=== PATIENT | female | born 1990 | race Caucasian/White ===

== ENCOUNTER 2017-06-01 22:12 | Inpatient (IN) | payer BC, OTHER ==
[~2017-06-01] VITALS: Ht 167.6 cm; Wt 50.9 kg
[2017-06-01 22:46] LABS: Basophils # (auto) 0.1 uL; Basophils % (auto) 0.6 % (0.0-2.0); Eosinophils # (auto) 0 uL; Eosinophils % (auto) 0.3 % (0.0-7.0); Hematocrit 42.9 % (36.0-46.0); Hemoglobin 14.6 g/dL (12.2-16.2); Lymphocytes % (auto) 15.5 % (10.0-50.0); Mean Platelet Volume 8.3 fL (6.9-10.8); Monocytes # (auto) 0.6 uL; Monocytes % (auto) 4.8 % (0.0-12.0); Neutrophils # (auto) 10.2 uL; Neutrophils % (auto) 78.8 % (37.0-80.0); Nucleated Red Blood Cells % 0.1 %; Platelet Count (auto) 261 10^3/uL (140-450); Red Cell Distribution Width 12.8 % (11.8-14.3)
[2017-06-01 22:59] LABS: Salicylate 4.1 mg/dL (2.8-20.0)
[2017-06-01 23:00] LABS: Albumin 4.2 g/dL (3.4-5.0); Anion Gap 13 (5-15); Aspartate Aminotransferase 14 U/L (15-37); BUN/Creatinine Ratio 15.5; Blood Urea Nitrogen 13 mg/dL (7-18); Calcium 8.4 mg/dL (8.5-10.1); Carbon Dioxide 18 mmol/L (21-32); Chloride 107 mmol/L (98-107); GFR African American 106 mL/min; GFR Non-African American 88 mL/min; Glucose 123 mg/dL (74-106); Potassium 3.2 mmol/L (3.5-5.1); Sodium 138 mmol/L (136-145)
[2017-06-01] MEDS ORDERED: SODIUM CHLORIDE 0.9% 2,000 ML IV ONE (23:00)
[2017-06-01] MEDS ORDERED: ACCU-CHEK COMFORT CURVE STRIP VI ONE (23:00)
[2017-06-01] MEDS ORDERED: LORazepam 2MG/ML-1ML VIAL IV ONE (23:00)
[2017-06-01 23:02] LABS: Alkaline Phosphatase 52 U/L (45-117); Bilirubin, Total 0.7 mg/dL (0.2-1.0); Total Protein 7.3 g/dL (6.4-8.2)
[2017-06-01 23:10] LABS: Acetaminophen 315.7 ug/mL (10-30)
[2017-06-01 23:43] LABS: Urine Bilirubin Negative (Negative); Urine Blood 1+ /uL (Negative); Urine Color Yellow (Yellow); Urine Glucose Normal (Normal); Urine Ketone 1+ (Negative); Urine Mucus FEW (None Seen); Urine Nitrite Negative (Negative); Urine RBC 3 /hpf (0 - 4); Urine Urobilinogen Normal (Negative); Urine pH 5.5 (5.0-8.0)
[2017-06-02] MEDS ORDERED: ACETYLCYSTEINE 200MG/ML IV SOLN 30ML IV ONE ×2 (00:37→05:21)
[2017-06-02] MEDS ORDERED: D5W 5% IV ONE ×2 (00:45→01:45)
[2017-06-02] MEDS ORDERED: ACETYLCYSTEINE IV ONE ×2 (00:45→01:45)
[2017-06-02 02:49] LABS: Albumin 3.6 g/dL (3.4-5.0); BUN/Creatinine Ratio 19.4; Bilirubin, Total 0.5 mg/dL (0.2-1.0); Calcium 7.5 mg/dL (8.5-10.1); Potassium 3.9 mmol/L (3.5-5.1); Total Protein 6.2 g/dL (6.4-8.2)
[2017-06-02] MEDS ORDERED: LORazepam 2MG/ML-1ML VIAL IV PRN (05:30)
[2017-06-02] MEDS ORDERED: ACETYLCYSTEINE IV SCH (05:45)
[2017-06-02] MEDS ORDERED: D5W 5% IV SCH (05:45)
[2017-06-02 06:27] LABS: Albumin 3.6 g/dL (3.4-5.0); BUN/Creatinine Ratio 17.7; Bilirubin, Total 0.7 mg/dL (0.2-1.0); Calcium 7.9 mg/dL (8.5-10.1); Potassium 3.5 mmol/L (3.5-5.1); Total Protein 6.2 g/dL (6.4-8.2)
[2017-06-02 06:43] LABS: Salicylate 2.2 mg/dL (2.8-20.0)
[2017-06-02 09:00] VITALS: BP 138/69
[2017-06-02 12:13] LABS: Albumin 3.9 g/dL (3.4-5.0); BUN/Creatinine Ratio 10.6; Bilirubin, Total 0.8 mg/dL (0.2-1.0); Calcium 8.5 mg/dL (8.5-10.1); Potassium 3.6 mmol/L (3.5-5.1); Total Protein 6.6 g/dL (6.4-8.2)
[2017-06-02 13:00] VITALS: BP 118/73
[2017-06-02 13:41] LABS: Acetaminophen 6.7 ug/mL (10-30); Salicylate 2.5 mg/dL (2.8-20.0)
[2017-06-02 17:00] VITALS: BP 113/76
[2017-06-02 21:54] LABS: Albumin 3.7 g/dL (3.4-5.0); Bilirubin, Direct 0.1 mg/dL (0-0.2); Bilirubin, Total 0.7 mg/dL (0.2-1.0); Total Protein 6.3 g/dL (6.4-8.2)
[2017-06-02 22:00] VITALS: BP 115/60
[2017-06-03 04:50] VITALS: BP 106/58
[2017-06-03 06:38] LABS: Albumin 3.7 g/dL (3.4-5.0); Bilirubin, Direct 0.1 mg/dL (0-0.2); Bilirubin, Total 0.6 mg/dL (0.2-1.0); Total Protein 6.3 g/dL (6.4-8.2)
[2017-06-03 09:30] VITALS: BP 112/69
[2017-06-03] MEDS ORDERED: ACETYLCYSTEINE IV SCH (10:30)
[2017-06-03] MEDS ORDERED: D5W 5% IV SCH (10:30)
[2017-06-03] MEDS: ONDANSETRON HCL 4 MG/2 ML VIAL IV PRN (10:38)
[2017-06-03 10:59] LABS: INR 1.17 (0.9-1.15); Prothrombin Time 12.8 sec (9.37-12.3)
[2017-06-03] MEDS: IBUPROFEN 400 MG TAB PO PRN (11:27)
[2017-06-03 11:54] VITALS: BP 111/68
[2017-06-03 17:00] VITALS: BP 124/69
[2017-06-03 22:00] VITALS: BP 119/77
[2017-06-04] MEDS: ONDANSETRON HCL 4 MG/2 ML VIAL IV PRN ×2 (03:48→11:45)
[2017-06-04] MEDS: IBUPROFEN 400 MG TAB PO PRN (03:54)
[2017-06-04 04:28] LABS: Basophils # (auto) 0.1 uL; Basophils % (auto) 1.3 % (0.0-2.0); Eosinophils # (auto) 0.1 uL; Eosinophils % (auto) 0.7 % (0.0-7.0); Hematocrit 39.1 % (36.0-46.0); Hemoglobin 13.5 g/dL (12.2-16.2); Lymphocytes # (auto) 2.8 uL; Lymphocytes % (auto) 25.2 % (10.0-50.0); Mean Corpuscular Hemoglobin 33.8 pg (28.0-32.0); Mean Corpuscular Hgb Conc. 34.5 g/dL (32.0-36.0); Mean Platelet Volume 8.7 fL (6.9-10.8); Monocytes # (auto) 0.7 uL; Monocytes % (auto) 6.7 % (0.0-12.0); Neutrophils # (auto) 7.3 uL; Neutrophils % (auto) 66.1 % (37.0-80.0); Nucleated Red Blood Cells % 0.1 %; Platelet Count (auto) 243 10^3/uL (140-450); Red Cell Distribution Width 12.7 % (11.8-14.3); White Blood Cell 11.1 10^3/uL (4.4-10.8)
[2017-06-04 04:54] LABS: Albumin 3.8 g/dL (3.4-5.0); BUN/Creatinine Ratio 12.7; Bilirubin, Total 0.7 mg/dL (0.2-1.0); Calcium 8.5 mg/dL (8.5-10.1); Total Protein 6.4 g/dL (6.4-8.2)
[2017-06-04 04:57] LABS: Albumin 3.8 g/dL (3.4-5.0); Bilirubin, Direct 0.1 mg/dL (0-0.2); Bilirubin, Total 0.7 mg/dL (0.2-1.0); Total Protein 6.5 g/dL (6.4-8.2)
[2017-06-04 05:00] VITALS: BP 100/64
[2017-06-04 05:08] LABS: Potassium 2.9 mmol/L (3.5-5.1)
[2017-06-04] MEDS ORDERED: POTASSIUM CHL 20 Meq TABLET PO ONE (06:00)
[2017-06-04 08:00] VITALS: BP 91/53
[2017-06-04 09:00] VITALS: BP 91/53
[2017-06-04] MEDS ORDERED: ACETYLCYSTEINE ORAL for CIN 20%(200MG/ML) 4ML PO SCH ×2 (10:00→22:00)
[2017-06-04 13:00] VITALS: BP 106/60
[2017-06-04 15:21] VITALS: BP 125/86
[2017-06-04 16:15] LABS: BUN/Creatinine Ratio 10.9; Potassium 3.8 mmol/L (3.5-5.1)
== END 2017-06-04 18:59 | disposition home or self-care (01) | DRG 918 ==
LOC: EDBD 22:12 → ER 22:34 → TELE-CENTR 22:35 → TELE-EAST 06-04 07:26
PROVIDERS: ADMIT Emergency Medicine; ATTEND Nurse Practitioner Acute Care
DX: T39.1X1A Poisoning by 4-Aminophenol derivatives, accidental (unintentional), initial encounter (principal); E87.6 Hypokalemia; G43.909 Migraine, unspecified, not intractable, without status migrainosus; R73.9 Hyperglycemia, unspecified; F32.9 Major depressive disorder, single episode, unspecified; Z91.5 Personal history of self-harm; Z85.9 Personal history of malignant neoplasm, unspecified; Z90.710 Acquired absence of both cervix and uterus; Y92.89 Other specified places as the place of occurrence of the external cause; Z87.440 Personal history of urinary (tract) infections; Z56.0 Unemployment, unspecified
CPT/HCPCS: 36415; 80048; 80053; 80076; 80307; 80320; 80329; 81001; 81025; 85025; 85610; 93005; 94761; 96361; 96374; J2405; J7060